=== PATIENT | female | born 2000 | race Caucasian/White ===

== ENCOUNTER 2021-07-29 21:32 | Emergency (ER) | payer MEDICAID, OTHER ==
[~2021-07-29] VITALS: Ht 152.4 cm; Wt 57.4 kg
[2021-07-29 21:35] VITALS: BP 100/72
[2021-07-30] MEDS ORDERED: DIAZEPAM 2 MG TABLET PO ONE (00:30)
[2021-07-30] MEDS ORDERED: IBUPROFEN 800MG TABLET PO ONE (00:30)
[2021-07-30] MEDS: IBUPROFEN 800MG TABLET PO SCH ×2 (02:11→02:12)
[2021-07-30] MEDS ORDERED: DIAZEPAM 2 MG TABLET PO SCH (03:00)
[2021-07-30] MEDS ORDERED: CYCL10TA7 MT ×2 (03:01)
[2021-07-30] MEDS ORDERED: LORA-249 MT (03:15)
== END 2021-07-30 04:24 | disposition home or self-care (01) ==
LOC: ER 21:32
DX: F41.9 Anxiety disorder, unspecified (principal); M54.6 Pain in thoracic spine; R51.9 Headache, unspecified
CPT/HCPCS: 71045; 72070; 93005; 99284